=== PATIENT | male | born 1960 | race Caucasian/White ===

== ENCOUNTER 2021-01-23 12:22 | Inpatient (IN) | payer MEDICAID, OTHER ==
[~2021-01-23] VITALS: Ht 175.3 cm; Wt 89.0 kg
[2021-01-23] MEDS ORDERED: ASPirin 81 mg TAB PO ONE (13:45)
[2021-01-23] MEDS ORDERED: FUROSEMIDE 40 MG/4 ML VIAL IV ONE (13:45)
[2021-01-23] MEDS ORDERED: SPIRONOLACTONE 25 MG TAB PO ONE (13:45)
[2021-01-23] MEDS ORDERED: SODIUM CHLORIDE 0.9% 1,000 ML IV ONE (13:45)
[2021-01-23] MEDS ORDERED: cefTRIAXone 1GM/50ML D5W 50 ML IV ONE (13:45)
[2021-01-23 14:11] LABS: Basophils # (auto) 0.1 10 ^3/uL (0-0.2); Eosinophils # (auto) 0.1 10 ^3/uL (0-0.8); Neutrophils # (auto) 3.8 10 ^3/uL (1.6-8.6)
[2021-01-23 14:13] LABS: Albumin 3.7 g/dL (3.4-5.0); Basophils % (auto) 1.1 % (0.0-2.0); Calcium 8.6 mg/dL (8.5-10.1); Eosinophils % (auto) 1.9 % (0.0-7.0); Hematocrit 40.6 % (41.0-53.0); Lymphocytes # (auto) 1.4 10 ^3/uL (0.4-5.4); Lymphocytes % (auto) 22.5 % (10.0-50.0); Mean Corpuscular Hemoglobin 34.4 pg (28.0-32.0); Mean Corpuscular Hgb Conc. 34.4 g/dL (32.0-36.0); Mean Corpuscular Volume 99.9 fL (80.0-100.0); Monocytes # (auto) 0.7 10 ^3/uL (0-1.3); Monocytes % (auto) 12.2 % (0.0-12.0); Neutrophils % (auto) 62.3 % (37.0-80.0); Nucleated Red Blood Cells % 0.1 %; Platelet Count (auto) 158 10^3/uL (140-450); Potassium 3.4 mmol/L (3.5-5.1); Red Blood Cells 4.07 10^6/uL (4.5-5.90); Red Cell Distribution Width 13.9 % (11.8-14.3)
[2021-01-23 14:14] LABS: Lactic Acid w/Reflex 2.9 mmol/L (0.4-2.0)
[2021-01-23 14:24] LABS: BUN/Creatinine Ratio 17.8; Bilirubin, Total 1.4 mg/dL (0.2-1.0); Total Protein 7.1 g/dL (6.4-8.2)
[2021-01-23 15:55] LABS: Urine Bacteria FEW /hpf (None Seen); Urine Blood Negative /uL (Negative); Urine Specific Gravity 1.004 (1.001-1.035); Urine WBC <1 /hpf (0 - 3)
[2021-01-23] MEDS ORDERED: IOHEXOL 350 MG/ML 100ML IJ ONE (16:13)
[2021-01-23] MEDS ORDERED: ONDANSETRON HCL 4 MG/2 ML VIAL IV PRN (19:00)
[2021-01-23] MEDS ORDERED: POTASSIUM CHL 20 Meq TABLET PO ONE (19:00)
[2021-01-23] MEDS ORDERED: NITROGLYCERIN 0.4 MG SL TAB SL PRN (19:00)
[2021-01-23] MEDS ORDERED: HYDROcodone-ACET 5/325MG TAB PO PRN (19:00)
[2021-01-23] MEDS ORDERED: MORPHINE SULF INJ 2 MG/ML SYRINGE 1ML IV PRN ×2 (19:00)
[2021-01-23] MEDS ORDERED: ACETAMINOPHEN 500 MG TAB PO PRN (19:00)
[2021-01-23] MEDS ORDERED: LORazepam 2MG/ML-1ML VIAL IV PRN (20:00)
[2021-01-23 20:47] LABS: Alcohol, Urine < 3.0 mg/dL (0-10); Amphetamine Screen, Urine NEGATIVE (NEGATIVE); Barbiturate Scree,Urine NEGATIVE (NEGATIVE); Benzodiazephine Screen, Urine NEGATIVE (NEGATIVE); Cannabinoid Screen, Urine NEGATIVE (NEGATIVE); Cocaine Screen, Urine NEGATIVE (NEGATIVE); Opiate Scree,Urine NEGATIVE (NEGATIVE); Phencyclidine Screen, Urine NEGATIVE (NEGATIVE)
[2021-01-23] MEDS: CARVEDILOL 3.125 MG TAB PO SCH (22:00)
[2021-01-23] MEDS: ATORVASTATIN 20 MG TAB PO SCH (22:28)
[2021-01-24 00:29] VITALS: BP 105/82
[2021-01-24 02:23] LABS: Albumin 3.4 g/dL (3.4-5.0); Calcium 8.6 mg/dL (8.5-10.1); Magnesium 1.7 mg/dL (1.6-2.6); Potassium 3.5 mmol/L (3.5-5.1)
[2021-01-24 02:26] LABS: BUN/Creatinine Ratio 17.6
[2021-01-24 02:32] LABS: Bilirubin, Total 1.6 mg/dL (0.2-1.0); Total Protein 6.4 g/dL (6.4-8.2)
[2021-01-24 05:00] VITALS: BP 110/78
[2021-01-24] MEDS ORDERED: FUROSEMIDE 40 MG/4 ML VIAL IV SCH (06:00)
[2021-01-24 08:00] VITALS: BP 113/81
[2021-01-24 09:04] VITALS: BP 113/81
[2021-01-24] MEDS ORDERED: MAGNESIUM SULFATE 1GM/100ML 100 ML IV ONE (09:15)
[2021-01-24] MEDS ORDERED: POTASSIUM CHL 20 Meq TABLET PO ONE ×2 (09:15→18:15)
[2021-01-24] MEDS: LISINOPRIL 5 MG TAB PO SCH (10:00)
[2021-01-24 10:09] LABS: Cholesterol 94 mg/dL (< 200); HDL Cholesterol 22 mg/dL (40-59); LDL Cholesterol 64 mg/dL (< 100); Triglycerides 75 mg/dL (< 150)
[2021-01-24] MEDS: FOLIC ACID 1 MG TAB PO SCH (11:39)
[2021-01-24] MEDS: CARVEDILOL 3.125 MG TAB PO SCH ×2 (11:39→22:00)
[2021-01-24] MEDS: PANTOPRAZOLE 40 MG TAB PO SCH (11:40)
[2021-01-24] MEDS: ENOXAPARIN SOD 40 MG/0.4 ML SYRINGE SC SCH (11:41)
[2021-01-24] MEDS: THIAMINE HCL 100 MG TAB PO SCH (11:42)
[2021-01-24 11:51] LABS: Basophils # (auto) 0 10 ^3/uL (0-0.2); Basophils % (auto) 0.8 % (0.0-2.0); Eosinophils # (auto) 0.1 10 ^3/uL (0-0.8); Eosinophils % (auto) 1.9 % (0.0-7.0); Hemoglobin 13.3 g/dL (13.5-17.5); Monocytes # (auto) 0.8 10 ^3/uL (0-1.3)
[2021-01-24 11:53] LABS: Hematocrit 38.2 % (41.0-53.0); Lymphocytes # (auto) 1.1 10 ^3/uL (0.4-5.4); Mean Corpuscular Hemoglobin 34.5 pg (28.0-32.0); Mean Corpuscular Hgb Conc. 34.7 g/dL (32.0-36.0); Mean Corpuscular Volume 99.2 fL (80.0-100.0); Monocytes % (auto) 13.9 % (0.0-12.0); Neutrophils # (auto) 3.8 10 ^3/uL (1.6-8.6); Neutrophils % (auto) 64.4 % (37.0-80.0); Platelet Count (auto) 154 10^3/uL (140-450); Red Blood Cells 3.85 10^6/uL (4.5-5.90); Red Cell Distribution Width 13.5 % (11.8-14.3); White Blood Cell 5.8 10^3/uL (4.4-10.8)
[2021-01-24 12:09] LABS: BUN/Creatinine Ratio 18.1; Calcium 8.8 mg/dL (8.5-10.1)
[2021-01-24 12:24] VITALS: BP 105/71
[2021-01-24 22:00] VITALS: BP 98/70
[2021-01-24] MEDS ORDERED: POTASSIUM CHL 20 Meq TABLET PO SCH (22:00)
[2021-01-24] MEDS: ATORVASTATIN 20 MG TAB PO SCH (22:12)
[2021-01-25 05:00] VITALS: BP 111/85
[2021-01-25 06:27] LABS: Basophils # (auto) 0.1 10 ^3/uL (0-0.2); Eosinophils # (auto) 0.1 10 ^3/uL (0-0.8); Eosinophils % (auto) 0.9 % (0.0-7.0); Hematocrit 41.3 % (41.0-53.0); Hemoglobin 14.1 g/dL (13.5-17.5); Lymphocytes # (auto) 1.5 10 ^3/uL (0.4-5.4); Lymphocytes % (auto) 25.3 % (10.0-50.0); Mean Corpuscular Hemoglobin 33.9 pg (28.0-32.0); Mean Corpuscular Volume 99.8 fL (80.0-100.0); Monocytes # (auto) 0.9 10 ^3/uL (0-1.3); Monocytes % (auto) 14.9 % (0.0-12.0); Neutrophils # (auto) 3.4 10 ^3/uL (1.6-8.6); Neutrophils % (auto) 57.9 % (37.0-80.0); Nucleated Red Blood Cells % 0.3 %; Platelet Count (auto) 152 10^3/uL (140-450); Red Blood Cells 4.14 10^6/uL (4.5-5.90); Red Cell Distribution Width 13.9 % (11.8-14.3); White Blood Cell 5.9 10^3/uL (4.4-10.8)
[2021-01-25] MEDS: FUROSEMIDE 20 MG/2 ML VIAL IV SCH ×2 (06:33→18:29)
[2021-01-25 06:42] LABS: INR 1.62 (0.9-1.15); Partial Thromboplastin Time 31.8 sec (23.0-31.2); Potassium 5.1 mmol/L (3.5-5.1)
[2021-01-25 06:47] LABS: Calcium 8.9 mg/dL (8.5-10.1); Magnesium 1.8 mg/dL (1.6-2.6)
[2021-01-25 08:00] VITALS: BP 100/69
[2021-01-25 09:00] VITALS: BP 100/69
[2021-01-25] MEDS ORDERED: HEPARIN IN NS 1000Units/500mL 1,500 ML ONE (09:55)
[2021-01-25] MEDS ORDERED: IODIXANOL 320MG/ML 100ML BTL IV ONE (09:55)
[2021-01-25] MEDS ORDERED: LIDOCAINE 2%HCL (LOCAL ANESTH.) INJ 20ML MDV ONE (09:55)
[2021-01-25] MEDS: LISINOPRIL 5 MG TAB PO SCH (10:00)
[2021-01-25] MEDS ORDERED: POTASSIUM CHL 20 Meq TABLET PO SCH (10:00)
[2021-01-25] MEDS: ENOXAPARIN SOD 40 MG/0.4 ML SYRINGE SC SCH (10:00)
[2021-01-25] MEDS ORDERED: ANGIOMAX 250 MG VIAL IV ONE (10:05)
[2021-01-25] MEDS ORDERED: SODIUM CHL 0.9% 0 ML ONE (10:06)
[2021-01-25] MEDS ORDERED: MIDAZOLAM HCL 1MG/1ML-2 ML VIAL ONE (10:06)
[2021-01-25] MEDS ORDERED: fentaNYL CITRATE 100 MCG/2 ML VL ONE (10:06)
[2021-01-25] MEDS ORDERED: HEPARIN SODIUM (PORCINE) 5000 UNITS/ML 1ML VIAL ONE (10:39)
[2021-01-25 13:00] VITALS: BP 101/83
[2021-01-25] MEDS: THIAMINE HCL 100 MG TAB PO SCH (14:20)
[2021-01-25] MEDS: PANTOPRAZOLE 40 MG TAB PO SCH (14:21)
[2021-01-25] MEDS: CARVEDILOL 3.125 MG TAB PO SCH (14:21)
[2021-01-25] MEDS: FOLIC ACID 1 MG TAB PO SCH (14:21)
[2021-01-25] MEDS ORDERED: MAGNESIUM SULFATE 1GM/100ML 100 ML IV ONE (16:30)
[2021-01-25 17:00] VITALS: BP 98/70
[2021-01-25] MEDS ORDERED: FOLI1TAB6 PO (19:23)
[2021-01-25] MEDS ORDERED: ATOR20TA50 PO (19:23)
[2021-01-25] MEDS ORDERED: CAR3125T PO (19:23)
[2021-01-25] MEDS ORDERED: LISI2.5T47 PO (19:23)
[2021-01-25] MEDS ORDERED: POTA8TAB2 PO (19:23)
[2021-01-25] MEDS ORDERED: THIA100T10 PO (19:23)
[2021-01-25] MEDS ORDERED: FUR20T PO (19:23)
[2021-01-25 20:26] VITALS: BP 101/84
[2021-01-26] MEDS ORDERED: FUROSEMIDE 20 MG TAB PO SCH (10:00)
[2021-01-26] MEDS ORDERED: POTASSIUM CHLORIDE 8 MEQ TAB PO SCH (10:00)
[2021-01-26] MEDS ORDERED: LISINOPRIL 5 MG TAB PO SCH (10:00)
== END 2021-01-25 21:18 | disposition home or self-care (01) | DRG 192 ==
LOC: ER 12:22 → TELE 18:58 → TELE-CENTR 20:24
PROVIDERS: ADMIT Nurse Practitioner Acute Care; ATTEND Internal Medicine
PROC: 4A023N8 Measurement of Cardiac Sampling and Pressure, Bilateral, Percutaneous Approach (ICD-10-PCS; principal; 2021-01-25)
PROC: B211YZZ Fluoroscopy of Multiple Coronary Arteries using Other Contrast (ICD-10-PCS; 2021-01-25)
PROC: B215YZZ Fluoroscopy of Left Heart using Other Contrast (ICD-10-PCS; 2021-01-25)
DX: I11.0 Hypertensive heart disease with heart failure (principal); I42.9 Cardiomyopathy, unspecified; I50.43 Acute on chronic combined systolic (congestive) and diastolic (congestive) heart failure; E87.6 Hypokalemia; I35.0 Nonrheumatic aortic (valve) stenosis; Z20.822 Contact with and (suspected) exposure to COVID-19; R94.5 Abnormal results of liver function studies; F10.10 Alcohol abuse, uncomplicated; J45.909 Unspecified asthma, uncomplicated; Y90.9 Presence of alcohol in blood, level not specified; K21.9 Gastro-esophageal reflux disease without esophagitis; Z82.49 Family history of ischemic heart disease and other diseases of the circulatory system; Z83.3 Family history of diabetes mellitus; Z79.899 Other long term (current) drug therapy
CPT/HCPCS: 36415; 71045; 71275; 80048; 80053; 80061; 80307; 81001; 83605; 83735; 83880; 84443; 84484; 85025; 85379; 85610; 85730; 87040; 87426; 93005; 93306; 93460; 93970; 96365; 96375; 99152; 99153; C1751; G0378; J0696; J2250; J2405; Q9967